=== PATIENT | male | born 1960 | race Caucasian/White ===

== ENCOUNTER 2017-06-09 20:53 | Emergency (ER) | payer OTHER ==
[~2017-06-09] VITALS: Ht 182.9 cm; Wt 107.0 kg
== END 2017-06-09 22:07 | disposition home or self-care (01) ==
LOC: ED 20:53
PROC: 0RSWXZZ Reposition Right Finger Phalangeal Joint, External Approach (ICD-10-PCS; principal; 2017-06-09)
DX: S63.286A Dislocation of proximal interphalangeal joint of right little finger, initial encounter (principal); S63.296A Dislocation of distal interphalangeal joint of right little finger, initial encounter; Z87.891 Personal history of nicotine dependence; W23.0XXA Caught, crushed, jammed, or pinched between moving objects, initial encounter; Y93.67 Activity, basketball
CPT/HCPCS: 26770; 73140; 99283